=== PATIENT | female | born 1945 | race Caucasian/White ===

== ENCOUNTER 2021-12-19 11:45 | Inpatient (IN) | payer MEDICARE, MEDICAID ==
[~2021-12-19] VITALS: Ht 165.1 cm; Wt 157.9 kg
[2021-12-19 12:30] LABS: BASOPHILS % 0.5 % (0.0-2.0); EOSINOPHILS % 0.9 % (0.0-5.0); HEMATOCRIT. 38.1 % (36.0-48.0); HEMOGLOBIN. 12.5 g/dL (12.0-16.0); LYMPHOCYTES % 41.3 % (20.0-50.0); MEAN CORPUSCULAR HEMOGLOBIN 28.5 pg (28.0-32.0); MEAN CORPUSCULAR VOLUME 86.7 fL (81.0-99.0); MEAN PLATELET VOLUME 9.1 fl (7.4-10.4); MONOCYTES % 10.9 % (2.0-8.0); NEUTROPHILS % 46.4 % (40.0-76.0); PLATELET 192 x1000/uL (130-400); RED CELL DISTRIBUTION WIDTH 13.5 % (11.6-14.6)
[2021-12-19 12:37] LABS: CHLORIDE 108 mEq/L (98-107)
[2021-12-19] MEDS ORDERED: ASPIRIN 81MG TABLET PO ONE (12:45)
[2021-12-19] MEDS ORDERED: LABETALOL 5MG/ML SYR 20 MG/4 ML SYRINGE IV ONE (13:00)
[2021-12-19] MEDS ORDERED: DIPHENHYDRAMINE 50MG/ML VIAL IV PRN (14:30)
[2021-12-19] MEDS ORDERED: IPRATROPIUM/ALBUTEROL 0.5-3(2.5)MG/3ML NEB HHN PRN (14:30)
[2021-12-19] MEDS ORDERED: ONDANSETRON HCL 4MG/2ML INJ IV PRN (14:30)
[2021-12-19 15:15] LABS: CLARITY URINE CLEAR (CLEAR); COLOR URINE YELLOW (YELLOW); KETONES URINE NEGATIVE (NEGATIVE); LEUKOCYTE ESTERASE URINE TRACE (NEGATIVE); NITRITE URINE NEGATIVE (NEGATIVE); OCCULT BLOOD URINE NEGATIVE (NEGATIVE); PH URINE 6.5 (4.5-8.0); PROTEIN URINE 1+ (NEGATIVE); SPECIFIC GRAVITY URINE 1.013 (1.005-1.030)
[2021-12-19] MEDS: CLONIDINE 0.1MG TABLET PO PRN (22:43)
[2021-12-20 00:30] VITALS: BP 178/79
[2021-12-20] MEDS: ACETAMINOPHEN 325MG TABLET PO PRN ×4 (01:04→23:28)
[2021-12-20] MEDS: HYDRALAZINE 20MG/ML VIAL IV PRN ×3 (01:04→13:25)
[2021-12-20 05:00] VITALS: BP 177/71
[2021-12-20 06:12] LABS: BASOPHILS % 0.2 % (0.0-2.0); EOSINOPHILS % 0.6 % (0.0-5.0); HEMATOCRIT. 38.1 % (36.0-48.0); HEMOGLOBIN. 12.7 g/dL (12.0-16.0); LYMPHOCYTES % 30.1 % (20.0-50.0); MEAN CORPUSCULAR HEMOGLOBIN 28.8 pg (28.0-32.0); MEAN CORPUSCULAR VOLUME 86.3 fL (81.0-99.0); MEAN PLATELET VOLUME 9.6 fl (7.4-10.4); MONOCYTES % 10.7 % (2.0-8.0); NEUTROPHILS % 58.4 % (40.0-76.0); PLATELET 189 x1000/uL (130-400); RED BLOOD CELL COUNT 4.42 mill/uL (4.2-5.4); RED CELL DISTRIBUTION WIDTH 13.3 % (11.6-14.6)
[2021-12-20 06:17] LABS: CHLORIDE 107 mEq/L (98-107)
[2021-12-20 08:00] VITALS: BP 114/57
[2021-12-20 12:00] VITALS: BP 179/64
[2021-12-20] MEDS ORDERED: ACETAMINOPHEN WITH CODEINE 300/30MG TABLET PO NR (13:00)
[2021-12-20 16:00] VITALS: BP 175/69
[2021-12-20] MEDS: POLYVINYL ALCOHOL OPHTH DROPS 15ML LEFTEYE SCH ×3 (18:06→23:29)
[2021-12-20] MEDS: CLONIDINE 0.1MG TABLET PO PRN (18:29)
[2021-12-20 20:00] VITALS: BP 120/72
[2021-12-21] VITALS: BP 179/57
[2021-12-21] MEDS: HYDRALAZINE 20MG/ML VIAL IV PRN (00:08)
[2021-12-21] MEDS: POLYVINYL ALCOHOL OPHTH DROPS 15ML LEFTEYE SCH ×4 (03:55→17:48)
[2021-12-21 04:00] VITALS: BP 158/60
[2021-12-21 08:00] VITALS: BP 152/88
[2021-12-21] MEDS: ACETAMINOPHEN 325MG TABLET PO PRN (09:26)
[2021-12-21] MEDS ORDERED: HYDROCODONE/ACETAMINOPHEN 5/325MG TABLET PO PRN (09:45)
[2021-12-21] MEDS ORDERED: NALOXONE HCL 0.4MG/ML VIAL IV PRN (09:45)
[2021-12-21 12:00] VITALS: BP 136/67
[2021-12-21] MEDS ORDERED: PANTOPRAZOLE 40MG DR TABLET PO SCH (12:45)
[2021-12-21] MEDS ORDERED: ASPIRIN 81MG TABLET PO SCH (12:45)
[2021-12-21] MEDS ORDERED: LIP40 PO (12:51)
[2021-12-21] MEDS ORDERED: AMLO5TAB88 PO (12:51)
[2021-12-21] MEDS ORDERED: P20 PO (12:51)
[2021-12-21] MEDS ORDERED: PANT40TA51 PO (12:51)
[2021-12-21] MEDS ORDERED: ASPI-1406 MT (12:51)
[2021-12-21] MEDS ORDERED: VALA500T PO (12:51)
[2021-12-21] MEDS ORDERED: AMLODIPINE 5MG TABLET PO SCH (13:00)
[2021-12-21] MEDS: PREDNISONE 20MG TABLET PO SCH ×2 (13:23→17:48)
[2021-12-21 14:33] VITALS: BP 136/67
[2021-12-21] MEDS ORDERED: ACET650T37 MT (14:47)
[2021-12-21] MEDS ORDERED: NALO4SPR BOTHNSTRLS (14:47)
[2021-12-21] MEDS ORDERED: HYDR-4001 MT (14:47)
[2021-12-21] MEDS: VALACYCLOVIR HCL 500MG TABLET PO SCH ×2 (15:09→17:48)
[2021-12-21 16:00] VITALS: BP 151/70
[2021-12-21] MEDS ORDERED: ATORVASTATIN CALCIUM 40MG TABLET PO SCH (21:00)
== END 2021-12-21 19:15 | disposition home or self-care (01) | DRG 74 ==
LOC: ER 11:45 → EDBEDREQ 11:53 → 6WST 14:00 → EDBEDREQ 14:08 → EDBEDREQTM 14:08 → ENRESERV 23:00
PROVIDERS: ADMIT Internal Medicine; ATTEND Internal Medicine
DX: G51.0 Bell's palsy (principal); Z68.43 Body mass index [BMI] 50.0-59.9, adult; I16.0 Hypertensive urgency; E66.01 Morbid (severe) obesity due to excess calories; R47.1 Dysarthria and anarthria; I10 Essential (primary) hypertension; Z96.653 Presence of artificial knee joint, bilateral; I25.10 Atherosclerotic heart disease of native coronary artery without angina pectoris; Z95.5 Presence of coronary angioplasty implant and graft
CPT/HCPCS: 36415; 71045; 80053; 80061; 81003; 84484; 85025; 93005; 93970; 99291; J0360; J3490; J7512